=== PATIENT | female | born 1985 | race Caucasian/White ===

== ENCOUNTER 2022-03-26 12:29 | Emergency (ER) | payer MEDICAID ==
[~2022-03-26] VITALS: Ht 165.1 cm; Wt 118.0 kg
[2022-03-26 12:36] VITALS: BP 159/98
[2022-03-26] MEDS ORDERED: DOXY100T2 MT (13:23)
[2022-03-26] MEDS ORDERED: DOXYCYCLINE HYCLATE 100MG CAPSULE PO ONE (13:30)
[2022-03-26] MEDS ORDERED: CEFTRIAXONE SODIUM 500 MG/VIAL IM ONE (13:30)
== END 2022-03-26 14:26 | disposition home or self-care (01) ==
LOC: ER 12:56
DX: L29.2 Pruritus vulvae (principal); L29.0 Pruritus ani; Z20.2 Contact with and (suspected) exposure to infections with a predominantly sexual mode of transmission; Z72.51 High risk heterosexual behavior; R19.7 Diarrhea, unspecified; R03.0 Elevated blood-pressure reading, without diagnosis of hypertension
CPT/HCPCS: 96372; 99283; J0696